=== PATIENT | male | born 1980 | race African-American/Black ===

== ENCOUNTER 2016-11-11 09:18 | Emergency (ER) | payer SELFPAY ==
--- NOTE | 2016-11-11 10:10 | ER Document Report ---
HPI - HPI Patient complains to provider of: left hand pain Pain Level: 5 Context: Patient is a 36-year-old male presents emergency Department complaining of left thumb pain for about 2 weeks. Patient states that he crushed in a door about 2 weeks ago and has had pain with movement ever since. Minimal swelling and pain with movement. Otherwise denies any other past medical issues - REPRODUCTIVE Reproductive: DENIES: : - DERM Skin Color: Normal Past Medical History - Social History Smoking Status: Current Every Day Smoker Family History: None - patient states none, Reviewed & Not Pertinent Patient has suicidal ideation: No Patient has homicidal ideation: No Renal/ Medical History: Denies: Hx Peritoneal Dialysis - Immunizations Immunizations up to date: No Hx Diphtheria, Pertussis, Tetanus Vaccination: Yes Vertical Provider Document - CONSTITUTIONAL Agree With Documented VS: Yes Exam Limitations: No Limitations General Appearance: WD/WN, No Apparent Distress - INFECTION CONTROL TRAVEL OUTSIDE OF THE [place] IN LAST 30 DAYS: No - RESPIRATORY O2 Sat by Pulse Oximetry: 99 - CARDIOVASCULAR Pulses: Decreased: Radial Notes: Capillary refill less than 2 seconds in all upper extremity digits - MUSCULOSKELETAL/EXTREMETIES Musculoskeletal/Extremeties: MAEW, FROM, Tender - over 1st metacarpal, Edema. negative: Eccymosis - NEURO Level of Consciousness: Awake, Alert, Appropriate Motor/Sensory: No Motor Deficit, No Sensory Deficit - DERM Integumentary: Warm, Dry, No Rash Course - Re-evaluation Re-evalutation: 11/11/16 10:59 No evidence of fracture. Discussed ice and [id number] NSAIDs for pain management. Can follow-up with primary care - Vital Signs Vital signs: Temp Pulse Resp BP Pulse Ox 97.6 F 58 L 16 112/73 99 11/11/16 09:25 11/11/16 09:25 11/11/16 09:25 11/11/16 09:25 11/11/16 09:25 - Diagnostic Test Radiology reviewed: Image reviewed, Reports reviewed Discharge - Discharge Clinical Impression: Hand pain Condition: Good Disposition: HOME, SELF-CARE Instructions: Ice & Elevation ([facility]), Use of Zehk-Igo-Agpmtsn Ibuprofen ([facility]) Forms: Return to Work Referrals: [facility] [NO LOCAL MD] - Follow up as needed
[2016-11-11] MEDS ORDERED: IBUPROFEN 600 MG TABLET PO ONE (10:21)
[2016-11-11 11:09] VITALS: BP 110/73
== END 2016-11-11 11:09 | disposition home or self-care (01) ==
LOC: ER 09:18
DX: M79.642 Pain in left hand (principal); F17.200 Nicotine dependence, unspecified, uncomplicated
CPT/HCPCS: 99283

== ENCOUNTER 2017-08-09 13:07 | Emergency (ER) | payer SELFPAY ==
[2017-08-10 03:00] LABS: APPEARANCE,URINE CLEAR; BILIRUBIN,URINE NEGATIVE (NEGATIVE); COLOR,URINE STRAW; GLUCOSE, URINE NEGATIVE (NEGATIVE); KETONES,URINE NEGATIVE (NEGATIVE); LEUKOCYTE ESTERASE,URINE NEGATIVE (NEGATIVE); NITRITE,URINE NEGATIVE (NEGATIVE); PROTEIN,URINE NEGATIVE (NEGATIVE); URINE SPECIFIC GRAVITY 1.014; UROBILINOGEN,URINE NEGATIVE mg/dL (<2.0)
[2017-08-10 03:02] LABS: ABSOLUTE BASOPHILS # (AUTO) 0.1 10^3/uL (0.0-0.2); ABSOLUTE EOSINOPHILS # (AUTO) 0.2 10^3/uL (0.0-0.6); ABSOLUTE MONOCYTES (AUTO) 0.7 10^3/uL (0.1-1.4); BASOPHILS % (AUTO) 0.8 % (0-2); EOSINOPHILS % (AUTO) 3.5 % (0-6); HEMATOCRIT 42.5 % (37.9-51.0); LYMPHOCYTES % (AUTO) 28.7 % (13-45); MEAN CORPUSCULAR HEMOGLOBIN 29.5 pg (27.0-33.4); MEAN CORPUSCULAR VOLUME 89 fl (80-97); MONOCYTES % (AUTO) 9.4 % (3-13); PLATELET COUNT 289 10^3/uL (150-450); RED BLOOD COUNT 4.75 10^6/uL (4.35-5.55); RED CELL DISTRIBUTION WIDTH 15.5 % (11.5-14.0); SEGMENTED NEUTROPHILS % (AUTO) 57.6 % (42-78); TOTAL CELLS COUNTED % (AUTO) 100 %; WHITE BLOOD COUNT 6.9 10^3/uL (4.0-10.5)
--- NOTE | 2017-08-10 09:51 | RADIOLOGY REPORT (SQ) ---
EXAM DESCRIPTION: RIBS LEFT W/PA CHEST COMPLETED DATE/TIME: 08/10/2017 3:05 am REASON FOR STUDY: FALL, PAIN COMPARISON: None. TECHNIQUE: Frontal view of the chest and additional views of the left ribs acquired. NUMBER OF VIEWS: Three view. LIMITATIONS: None. FINDINGS: FRONTAL CXR: No pneumothorax. No pleural effusion. No atelectasis or infiltrates. RIBS: No displaced rib fractures. No lytic or blastic bony lesions. OTHER: No other significant finding. IMPRESSION: NO PNEUMOTHORAX. NO DISPLACED RIB FRACTURES. COMMENT: SITE OF TRAUMA/COMPLAINT MARKED/STAMP COMPLETED: NO. TECHNICAL DOCUMENTATION: JOB ID: [id number] [employer]- All Rights Reserved
== END 2017-08-09 14:55 | disposition home or self-care (01) ==
LOC: ER 13:07
DX: S20.212A Contusion of left front wall of thorax, initial encounter (principal); W10.9XXA Fall (on) (from) unspecified stairs and steps, initial encounter; F17.200 Nicotine dependence, unspecified, uncomplicated
CPT/HCPCS: 36415; 81001; 85025; 99284

== ENCOUNTER 2017-11-10 20:56 | Emergency (ER) | payer SELFPAY ==
--- NOTE | 2017-11-10 22:01 | RADIOLOGY REPORT (SQ) ---
EXAM DESCRIPTION: FOOT RIGHT 2 VIEWS COMPLETED DATE/TIME: 11/10/2017 9:47 pm REASON FOR STUDY: Pain s/p injury COMPARISON: None. NUMBER OF VIEWS: Two views. TECHNIQUE: AP and lateral radiographic images acquired of the right foot. LIMITATIONS: None. FINDINGS: MINERALIZATION: Normal. BONES: Minimally displaced fractures involving the distal end of the proximal phalanx of the 2nd toe and the base of the distal phalanx of the 3rd toe. JOINTS: No effusions. SOFT TISSUES: No soft tissue swelling. No foreign body. OTHER: No other significant finding. IMPRESSION: MINIMALLY DISPLACED FRACTURES OF THE DISTAL END OF THE PROXIMAL PHALANX OF THE 2ND TOE A ND BASE OF THE DISTAL PHALANX OF 3RD TOE. TECHNICAL DOCUMENTATION: JOB ID: [id number] [employer]- All Rights Reserved Reading location - IP/workstation name: [email or web address]
[2017-11-10] MEDS ORDERED: CEFAZOLIN 1 GM/D5W RTU 1 GM/50 ML RTUPB IV ONE (22:09)
[2017-11-10] MEDS ORDERED: DIPH/PERTUSS(ACELL)/TETANUS VAC/PF 0.5 ML SYR (>=10YO) IM ONE (22:09)
[2017-11-10] MEDS ORDERED: OXYCODONE-ACETAMINOPHEN 5-325 MG TABLET PO ONE (22:09)
[2017-11-10] MEDS ORDERED: LIDOCAINE 1% INJ-PF (10 MG/ML) 30 ML SDV INJ ONE (22:10)
--- NOTE | 2017-11-10 22:35 | ER Document Report ---
HPI - HPI Pain Level: 4 Context: Patient is a 37-year-old male who presents emergency department the chief complaint of puncture wound to the right foot. She states that he was helping a friend felt something when the nail shot from a gun through top of his shoe puncturing his second and third toe. Tetanus not up-to-date. Able to bear weight on it. Denies any numbness or tingling at the tip of his toes to palpation. Not on any blood thinners. - REPRODUCTIVE Reproductive: DENIES: : Past Medical History - Social History Smoking Status: Smoker,Current Status Unk Family History: None - patient states none, Reviewed & Not Pertinent Renal/ Medical History: Denies: Hx Peritoneal Dialysis - Immunizations Immunizations up to date: No Hx Diphtheria, Pertussis, Tetanus Vaccination: Yes Vertical Provider Document - CONSTITUTIONAL Agree With Documented VS: Yes Notes: PHYSICAL EXAM GENERAL: Alert, interacts well. EXTREMITIES: Moves all 4 extremities spontaneously. No edema, radial and dorsalis pedis pulses 2/4 bilaterally. No cyanosis. cap refill < 2 seconds in b/ l LE digits. ROM intact. weakness with strength on third toe NEUROLOGICAL: Alert and oriented x4. Normal speech. PSYCH: Normal affect, normal mood. SKIN: Warm, dry, normal turgor. laceration with deformity of 2nd proximal phalanx and puncture wound of third toe with wound on the base of the fat pad, minimal bleeding, - INFECTION CONTROL TRAVEL OUTSIDE OF THE [place] IN LAST 30 DAYS: No Course - Re-evaluation Re-evalutation: Patient is a 37-year-old male presents with puncture wounds to the right foot. X-ray shows displaced fractures of the proximal phalanx of the second toe and the distal phalanx of the third toe. Wound was irrigated copiously with Betadine and saline. Lacerations were closed loosely. Patient initiated on antibiotics given pain medication restriction for strict Orth follow-up. Agree with plan stable for discharge home - Vital Signs Vital signs: Temp Pulse Resp BP Pulse Ox 98.1 F 70 18 104/60 98 11/10/17 21:09 11/10/17 21:09 11/10/17 21:09 11/10/17 21:09 11/10/17 21:09 - Diagnostic Test Radiology reviewed: Image reviewed, Reports reviewed Procedures - Laceration/Wound Repair Right Toe Wound length (cm): 1 Wound's Depth, Shape: Other - puncture Laceration pre-procedure: Sterile PPE donned, Betadine prep applied, Sterile drapes applied Anesthetic type: 1% Lidocaine Wound explored: Clean, No foreign body removed Irrigated w/ Saline (mLs): 1,000 Wound Debrided: Minimal Wound Repaired With: Sutures Suture Size/Type: 6:0, Nylon Number of Sutures: 5 Layer Closure?: No Post-procedure wound care: Sterile dressing applied, Splint applied Post-procedure NV exam normal: Yes Complications: No Discharge - Discharge Clinical Impression: Puncture wound Phalanx fracture, foot Qualifiers: Encounter type: initial encounter Toe: unspecified toe Fracture type: open Fracture alignment: displaced Laterality: right Qualified Code(s): S92.911B - Unspecified fracture of right toe(s), initial encounter for open fracture Condition: Good Disposition: HOME, SELF-CARE Additional Instructions: Your puncture wound today is an open wound which is concerning for risk of infection. He will need to follow-up with orthopedics as soon as possible to have this evaluated. Please return to the emergency department for any worsening redness, swelling or any matta drainage, associated fevers or chills. Prescriptions: Ciprofloxacin HCl [Cipro 500 mg Tablet] 500 mg PO BID #20 tablet Oxycodone HCl/Acetaminophen [Percocet 5-325 mg Tablet] 1 - 2 tab PO Q4H PRN #25 tablet PRN Reason: Forms: Special Work Note Referrals: MARY FONTAINE MD [ACTIVE STAFF] - Follow up tomorrow (for open toe fractures to be seen se)
[2017-11-11] MEDS ORDERED: OXYCODONE-ACETAMINOPHEN 5-325 MG TABLET PO ONE (00:33)
[2017-11-11 00:41] VITALS: BP 107/61
== END 2017-11-11 00:54 | disposition home or self-care (01) ==
LOC: ER 20:56
PROC: 0HQMXZZ Repair Right Foot Skin, External Approach (ICD-10-PCS; principal; 2017-11-10)
DX: S91.331A Puncture wound without foreign body, right foot, initial encounter (principal); S92.911B Unspecified fracture of right toe(s), initial encounter for open fracture; W34.010A Accidental discharge of airgun, initial encounter; Y93.H3 Activity, building and construction; Z23 Encounter for immunization; F17.200 Nicotine dependence, unspecified, uncomplicated
CPT/HCPCS: 99283; 73620; 90715; 12001; J0690; J3490